=== PATIENT | female | born 1985 | race Caucasian/White ===

== ENCOUNTER 2017-05-29 23:01 | Emergency (ER) | payer OTHER ==
[2017-05-29 23:11] VITALS: BP 149/82
--- NOTE | 2017-05-29 23:39 | EDM.PDOC ---
ED HPI GENERAL MEDICAL PROBLEM - General Chief Complaint: Chest Pain Stated Complaint: chest pain Time Seen by Provider: 05/29/17 23:11 Source of Information: Reports: Patient, Family History Limitations: Reports: No Limitations - History of Present Illness INITIAL COMMENTS - FREE TEXT/NARRATIVE: This is a 31-year-old female. She's been having some sharp left-sided chest pain that kind of comes and goes over the last month. She thinks it recently has been happening more frequently. It's not a pressure or squeezing sensation is more like a knife stabbing her in the chest. She has been doing some exercises and isometric arm exercises recently but she doesn't notice any sharp pain when she is actually doing them. She has not been sweaty or short of breath with the pain. She does smoke half a pack of cigarettes a day and uses some caffeine. She also has in her left upper back a soreness in the rhomboid muscles that correlates to the same rib where she gets the sharp pain in the front. She denies any significant cough or congestion no fever no chills no nausea or vomiting. Treatments PIPELINES MANAGER: Reports: Other (see below) Other Treatments PIPELINES MANAGER: none Left Chest Pain Score (Numeric/FACES): 4 - Related Data Allergies Allergy/AdvReac Type Severity Reaction Status Date / Time No Known Allergies Allergy Verified 04/27/15 12:17 Home Meds: Home Meds . [No Known Home Meds] 05/29/17 [History] Past Medical History Musculoskeletal History: Reports: Other (See Below) Other Musculoskeletal History: bunionectomy Neurological History: Reports: Seizure Psychiatric History: Reports: Anxiety, Depression, OCD - Past Surgical History Other Neurological Surgeries/Procedures: one seizure from mixing meds: lexapro, valtrex, and amoxicillin Social & Family History - Tobacco Use Smoking Status *Q: Current Every Day Smoker Years of Tobacco use: 15 Packs/Tins Daily: 0.5 - Caffeine Use Caffeine Use: Reports: Soda - Recreational Drug Use Recreational Drug Use: No ED ROS GENERAL - Review of Systems Review Of Systems: See Below Constitutional: Denies: Fever, Chills HEENT: Reports: No Symptoms Respiratory: Denies: Shortness of Breath, Cough Cardiovascular: Reports: Chest Pain Endocrine: Reports: No Symptoms GI/Abdominal: Denies: Abdominal Pain, Diarrhea, Nausea, Vomiting : Reports: No Symptoms Musculoskeletal: Reports: No Symptoms Skin: Reports: No Symptoms Neurological: Reports: No Symptoms Psychiatric: Reports: No Symptoms Hematologic/Lymphatic: Reports: No Symptoms ED EXAM, GENERAL - Physical Exam Exam: See Below Exam Limited By: No Limitations General Appearance: Alert, WD/WN, No Apparent Distress Eye Exam: Bilateral Eye: Normal Inspection Ears: Normal External Exam, Normal Canal, Normal TMs Nose: Normal Inspection Throat/Mouth: Normal Inspection, Normal Lips, Normal Voice, No Airway Compromise Head: Normocephalic Neck: Supple Respiratory/Chest: No Respiratory Distress, Lungs Clear, Normal Breath Sounds, Other (Palpation of the anterior chest reveals an the fourth rib at the costochondral margin I can make a sharp pain occur by palpation in that area) Cardiovascular: Regular Rate, Rhythm, No Murmur GI/Abdominal: Soft Back Exam: Other (In the lower scapula area around rib 4 is where she has the muscle soreness) Extremities: Normal Inspection, Normal Range of Motion Neurological: Alert, Oriented Psychiatric: Normal Affect, Normal Mood Skin Exam: Warm, Dry EKG INTERPRETATION EKG Date: 05/29/17 Time: 23:21 EKG Interpretation Comments: EKG shows a normal sinus rhythm with no acute ST or T-wave changes and there is no ischemia noted Course - Vital Signs Last Recorded V/S: Last Vital Signs Temp 97.2 F 05/29/17 23:10 Pulse 91 05/29/17 23:10 Resp 22 H 05/29/17 23:10 BP 149/82 H 05/29/17 23:10 Pulse Ox 100 05/29/17 23:10 - Orders/Labs/Meds Orders: Active Orders 24 hr Category Date Time Status EKG Documentation Completion [RC] ASDIRECTED Care 05/29/17 23:21 Active EKG 12 Lead [EK] Stat Ther 05/29/17 23:21 Ordered Labs: Laboratory Tests 05/29/17 05/29/17 Range/Units 23:46 23:46 WBC 7.67 (3.98-10.04) K/mm3 RBC 4.37 (3.98-5.22) M/mm3 Hgb 13.4 (11.2-15.7) gm/L Hct 39.9 (34.1-44.9) % MCV 91.3 (79.4-94.8) fl MCH 30.7 (25.6-32.2) pg MCHC 33.6 (32.2-35.5) g/dl RDW Std Deviation 41.9 (36.4-46.3) fL Plt Count 203 (182-369) K/mm3 MPV 10.9 (9.4-12.3) fl Neut % (Auto) 50.8 (34.0-71.1) % Lymph % (Auto) 41.2 (19.3-51.7) % [place] % (Auto) 6.4 (4.7-12.5) % Eos % (Auto) 1.2 (0.7-5.8) Baso % (Auto) 0.3 (0.1-1.2) % Neut # (Auto) 3.90 (1.56-6.13) K/mm3 Lymph # (Auto) 3.16 (1.18-3.74) K/mm3 [place] # (Auto) 0.49 H (0.24-0.36) K/mm3 Eos # (Auto) 0.09 (0.04-0.36) K/mm3 Baso # (Auto) 0.02 (0.01-0.08) K/mm3 Sodium 140 (136-145) mEq/L Potassium 3.4 L (3.5-5.1) mEq/L Chloride 103 (98-107) mEq/L Carbon Dioxide 27 (21-32) mEq/L Anion Gap 13.4 (5-15) BUN 16 (7-18) mg/dL Creatinine 0.9 (0.55-1.02) mg/dL Est Cr Clr Drug Dosing 78.21 mL/min Estimated GFR (MDRD) > 60 (>60) mL/min BUN/Creatinine Ratio 17.8 (14-18) Glucose 95 (74-106) mg/dL Calcium 9.1 (8.5-10.1) mg/dL Total Bilirubin 0.2 (0.2-1.0) mg/dL AST 22 (15-37) U/L ALT 22 (14-59) U/L Alkaline Phosphatase 63 (46-116) U/L Troponin I < 0.017 (0.00-0.056) ng/mL Total Protein 7.1 (6.4-8.2) g/dl Albumin 3.6 (3.4-5.0) g/dl Globulin 3.5 gm/dL Albumin/Globulin Ratio 1.0 (1-2) - Re-Assessments/Exams Free Text/Narrative Re-Assessment/Exam: 05/30/17 00:32 I spoke to the patient regarding her lab results and negative heart enzymes. I encouraged her to use heat to her chest and take some ibuprofen or Aleve for the soreness and sharp pain. I encouraged her to be careful about doing heavy exercise with her arms until this, eases up and maybe even go see a chiropractor to help with these symptoms. Departure - Departure Time of Disposition: 00:32 Disposition: Home, Self-Care 01 Condition: Good Clinical Impression: Acute costochondritis Instructions: Costochondritis, [id number] Referrals: Niharika Zhang PA-C [Primary Care Provider] - Forms: ED Department Discharge Additional Instructions: Use heat to your chest to help with the soreness as well as your back, take Aleve or ibuprofen as needed if the pain continues or worsens, follow up with your family doctor for reevaluation or even see a chiropractor to see if they can help you with your rib pain, return to the ER if needed - My Orders Last 24 Hours: My Active Orders 05/29/17 23:21 EKG Documentation Completion [RC] ASDIRECTED EKG 12 Lead [EK] Stat - Assessment/Plan Last 24 Hours: My Active Orders 05/29/17 23:21 EKG Documentation Completion [RC] ASDIRECTED EKG 12 Lead [EK] Stat
== END 2017-05-30 00:39 | disposition home or self-care (01) ==
LOC: JD.ED 23:01 → SUPCPDRO 23:01 → JD.ED 05-30 00:39
DX: M94.0 Chondrocostal junction syndrome [Tietze] (principal); F17.210 Nicotine dependence, cigarettes, uncomplicated
CPT/HCPCS: 36415; 80053; 84484; 85025; 93005; 93010; 99284-25; 99285-25

== ENCOUNTER 2022-07-03 18:22 | Emergency (ER) | payer OTHER | END 2022-07-03 20:53 | disposition left against medical advice (07) | LOC: JD.ED 18:22 | DX: Z53.21 Procedure and treatment not carried out due to patient leaving prior to being seen by health care provider (principal) ==

== ENCOUNTER 2024-02-02 09:23 | Emergency (ER) | payer OTHER ==
[2024-02-02 10:28] LABS: BASOPHILS PERCENT AUTO 0.4 % (0.0-1.0); EOSINOPHILS ABSOLUTE AUTO 0.1 K/mm3 (0.0-0.4); EOSINOPHILS PERCENT AUTO 0.7 % (0.0-6.0); HEMATOCRIT 41.9 % (37.0-47.0); HEMOGLOBIN 14.3 gm/dl (12.0-16.0); IMMATURE GRAN ABSOLUTE AUTO 0.02 K/mm3 (0.00-0.05); IMMATURE GRAN PERCENT AUTO 0.3 % (0.0-0.4); LYMPHOCYTES ABSOLUTE AUTO 2.4 K/mm3 (1.0-4.8); LYMPHOCYTES PERCENT AUTO 34.1 % (24.0-44.0); MEAN CORPUSCULAR HEMOGLOBIN 31.9 pg (28.0-32.0); MEAN CORPUSCULAR HGB CONC 34.1 g/dl (32.0-36.0); MEAN CORPUSCULAR VOLUME 93.5 fl (83.0-99.0); MEAN PLATELET VOLUME 10.4 fl (9.4-12.3); MONOCYTES ABSOLUTE AUTO 0.3 K/mm3 (0.0-0.8); MONOCYTES PERCENT AUTO 4.8 % (0.0-8.0); NEUTROPHILS ABSOLUTE AUTO 4.1 K/mm3 (1.8-7.7); NEUTROPHILS PERCENT AUTO 59.7 % (41.0-71.0); PLATELET COUNT,PLT 266 K/mm3 (150-400); RED BLOOD CELL COUNT 4.48 M/mm3 (4.10-5.30); WHITE BLOOD CELL COUNT,WBC 6.89 K/mm3 (3.9-11.3)
[2024-02-02 11:03] LABS: ALBUMIN 3.6 g/dl (3.4-5.0); BILIRUBIN TOTAL 0.4 mg/dL (0.2-1.0); BUN/CREATININE RATIO 11.1 (14-18); CALCIUM 9.6 mg/dL (8.5-10.1); CREATININE 0.9 mg/dL (0.55-1.02); EST CRCL DRUG DOSING (CG) 73.19 mL/min; PROTEIN TOTAL,TP 7.4 g/dl (6.4-8.2)
[2024-02-02] MEDS: Ketorolac 60 MG/2 ML SDV IM ONE (11:05)
[2024-02-02 12:18] VITALS: BP 130/94; PULSE 92
== END 2024-02-02 12:10 | disposition home or self-care (01) ==
LOC: JD.ED 09:23
DX: M77.8 Other enthesopathies, not elsewhere classified (principal); R07.89 Other chest pain; F17.210 Nicotine dependence, cigarettes, uncomplicated; Z79.899 Other long term (current) drug therapy
CPT/HCPCS: 36415; 71046; 73030; 80053; 84484; 85025; 85379; 93005; 96372; 99285; J1885